=== PATIENT | female | born 1980 | race Caucasian/White ===

== ENCOUNTER → 2017-10-07 | Outpatient (CLI) | payer OTHER ==
--- NOTE | 2017-10-07 14:50 | MRI ---
MRI OF THE BRAIN WITHOUT IV CONTRAST CLINICAL INDICATION: Seizure disorder TECHNIQUE: Pre-contrast T1-w, T2, and diffusion-w sequences of the brain with ADC maps. COMPARISON: None. FINDINGS: There is no abnormal brain parenchymal signal. There is no mass or mass-effect, or abnormal extra-axi al fluid collection. On series 1101, image 18 there is suggestion of volume loss of the left hippocam pus with focal dilation of the adjacent temporal horn of the lateral ventricle. Additionally there ap pears to be an empty sella. Diffusion imaging shows no hyperacute, acute, or early subacute infarctio n. The ventricles are otherwise normal in size, shape and position. There are normal signal voids in the larger intracranial vessels. There is sinus mucosal inflammation of the left sphenoid sinus and s cattered ethmoid air cells. The marrow signal pattern is within normal limits. IMPRESSION: 1. 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 2. Suggestion of empty sella. Correlate with any history of prior surgery or endocrine abnormalities. 3. Sinus disease as above. Correlate symptoms Reported By:
== END | disposition home or self-care (01) | DRG 101 ==
LOC: LAB 13:12
PROVIDERS: ATTEND Psychiatry & Neurology Neurology
DX: G40.909 Epilepsy, unspecified, not intractable, without status epilepticus (principal); J32.3 Chronic sphenoidal sinusitis
CPT/HCPCS: 70551